=== PATIENT | male | born 1930 | race Hispanic/Latino ===

== ENCOUNTER → 2017-08-26 | Outpatient (CLI) | payer OTHER, MEDICARE ==
[~2017-08-26] MED LIST: IOPAMIDOL-370 75 ML VIAL IV ONE
== END | disposition home or self-care (01) ==
LOC: OIH 07:51
PROVIDERS: ATTEND Urology
DX: N28.1 Cyst of kidney, acquired (principal)
CPT/HCPCS: 74170; Q9967

== ENCOUNTER 2018-06-12 14:14 | Emergency (ER) | payer OTHER, MEDICARE ==
[2018-06-12] MEDS ORDERED: KETOROLAC TROMETHAMINE 15MG/ML ONE (15:05)
[2018-06-12 15:08] LABS: BASOPHILS % (AUTO) 0.6 % (0.0-5.0); EOSINOPHILS % (AUTO) 1.4 % (0.0-8.0); HEMATOCRIT 40.9 % (42-54); LYMPHOCYTES % (AUTO) 13.3 % (21.0-51.0); MEAN CORPUSCULAR HEMOGLOBIN 30.8 pg (27.0-33.0); MEAN CORPUSCULAR VOLUME 93.4 fL (79-99); MONOCYTES % (AUTO) 8.9 % (3.0-13.0); NEUTROPHILS % (AUTO) 75.8 % (40.0-77.0); PLATELET COUNT (AUTO) 148 K/uL (130-400); RED BLOOD CELL COUNT(AUTO) 4.37 MIL/uL (4.50-6.20); RED CELL DISTRIBUTION WIDTH 13.8 % (11.0-15.5); WHITE BLOOD COUNT (AUTO) 8.5 K/uL (4.8-10.8)
[2018-06-12 15:21] LABS: POTASSIUM 3.4 mmol/L (3.5-5.1)
[2018-06-12 15:22] LABS: INR 2.78 (0.85-1.15); PARTIAL THROMBOPLASTIN TIME 38.7 SEC (26.3-35.5); PROTHROMBIN TIME 28.6 SEC (9.6-11.6)
[2018-06-12 15:25] LABS: ALBUMIN 3.1 g/dL (3.5-5.0); BILIRUBIN,TOTAL 0.8 mg/dL (0.2-1.0); CRP QUANTITATIVE 18.4 mg/L (0.00-9.0); TOTAL PROTEIN, SERUM 6.4 g/dL (6.0-8.3)
== END 2018-06-12 16:31 | disposition home or self-care (01) ==
LOC: EDH 14:14
DX: M79.672 Pain in left foot (principal); M79.89 Other specified soft tissue disorders; I25.10 Atherosclerotic heart disease of native coronary artery without angina pectoris; E78.5 Hyperlipidemia, unspecified; I10 Essential (primary) hypertension; M81.0 Age-related osteoporosis without current pathological fracture; Z98.62 Peripheral vascular angioplasty status; Z79.01 Long term (current) use of anticoagulants
CPT/HCPCS: 36415; 73630; 80053; 84550; 85025; 85610; 85730; 86140; 96374; 99284; J1885

== ENCOUNTER → 2018-08-03 | Outpatient (CLI) | payer OTHER, MEDICARE | END | disposition home or self-care (01) | LOC: RAH 13:56 | PROVIDERS: ATTEND Urology | DX: N28.1 Cyst of kidney, acquired (principal) | CPT/HCPCS: 76770 ==

== ENCOUNTER → 2019-05-15 | Outpatient (CLI) | payer OTHER, MEDICARE | END | disposition home or self-care (01) | LOC: SHCH 08:07 | PROVIDERS: ATTEND Internal Medicine Cardiovascular Disease | DX: I08.1 Rheumatic disorders of both mitral and tricuspid valves (principal) | CPT/HCPCS: 93306 ==

== ENCOUNTER 2019-07-29 08:30 | Observation (INO) | payer OTHER, MEDICARE ==
[2019-07-27 08:40] VITALS: BP 90/53
[2019-07-27 08:57] LABS: BASOPHILS % (AUTO) 0.7 % (0.0-5.0); EOSINOPHILS % (AUTO) 2.5 % (0.0-8.0); HEMATOCRIT 45.1 % (42-54); LYMPHOCYTES % (AUTO) 19.9 % (21.0-51.0); MEAN CORPUSCULAR HEMOGLOBIN 30.2 pg (27.0-33.0); MEAN CORPUSCULAR HGB CONC 31.9 g/dL (32.0-36.0); MEAN CORPUSCULAR VOLUME 94.5 fL (79-99); MONOCYTES % (AUTO) 7.3 % (3.0-13.0); NEUTROPHILS % (AUTO) 69.3 % (40.0-77.0); PLATELET COUNT (AUTO) 191 K/uL (130-400); RED BLOOD CELL COUNT(AUTO) 4.77 MIL/uL (4.50-6.20); RED CELL DISTRIBUTION WIDTH 13.2 % (11.0-15.5); WHITE BLOOD COUNT (AUTO) 7.7 K/uL (4.8-10.8)
[2019-07-27 09:02] LABS: CREATININE 1.2 mg/dL (0.5-1.5)
[2019-07-27 09:11] LABS: INR 2.03 (0.85-1.15); PARTIAL THROMBOPLASTIN TIME 32.8 SEC (26.3-35.5); PROTHROMBIN TIME 20.7 SEC (9.6-11.6)
[2019-07-27 09:50] VITALS: BP 127/71
--- NOTE | 2019-07-28 14:42 | NUR ---
RE: ABNORMAL LABS INFORMED SAMANTHA ONOFRE REGARDING PT 20.7 INR 2.03 AND PTT 32.8. PATIENT TAKING WARFARIN AND WAS INSTRUCTED TO HOLD WARFARIN 3 DAYS BEFORE PROCEDURE. PER TIBURCIO ONOFRE TO PROCEED WITH PROCEDURE. RECHECK INR IN AM OF PROCEDURE.
[~2019-07-29] VITALS: Ht 160 cm; Wt 62.6 kg
[~2019-07-29 08:30] MED LIST changes: +ACET-66 PO; +ALEN35TA23 PO; +ASPI-555 PO; +CEFAZOLIN SODIUM 1 GM VIAL IVP SCH; +FINA5TAB41 PO; +FURO20TA4 PO; -IOPAMIDOL-370 75 ML VIAL IV ONE; +METO-408 PO; +SACU1TAB PO; +SIMV-46 PO; +WARF2.5T9 PO
[2019-07-29 08:40] VITALS: BP 138/81
[2019-07-29 09:21] LABS: INR 1.35 (0.85-1.15)
[2019-07-29] MEDS: SODIUM CHLORIDE 0.9% 1000ML 1,000 ML IV SCH ×2 (09:34→10:07)
[2019-07-29] MEDS ORDERED: BUPIVACAINE/PF 0.25% 30ML VIAL IJ ONE (12:01)
[2019-07-29] MEDS ORDERED: MEPERIDINE-PF 25 MG/ML SYG ONE ×2 (12:02→12:45)
[2019-07-29] MEDS ORDERED: MIDAZOLAM HCL 1 MG/ML 2ML VIAL ONE ×2 (12:02→12:45)
[2019-07-29] MEDS ORDERED: IODIXANOL 320 MG/ML 100 ML VIAL ONE (12:02)
[2019-07-29] MEDS ORDERED: CEFAZOLIN SODIUM 1 GM VIAL ONE (12:02)
[2019-07-29] MEDS ORDERED: LIDOCAINE HCL 1% MDV 50ML VIAL ONE (12:02)
[2019-07-29] MEDS ORDERED: ACETAMINOPHEN-CODEINE 300/30MG TAB PO PRN (13:45)
[2019-07-29 15:30] VITALS: BP 103/63
--- NOTE | 2019-07-29 15:30 | NUR ---
POST PROCEDURE RECEIVED PT FROM COLOR CORRECTOR IN SEMI MONTOYA'S POSITION, A&OX3, CALM COOPERATIVE AND DOES NOT APPEAR TO BE IN ANY DISTRESS NOR ANY NEURO DEFICITS PRESENT. LEFT SHOULDER DRESSING DRY AND INTACT WITH NO OOZING OR HEMATOMA PRESENT. PULSES AND ALUMINUM MOLDER STRENGTH STRONG WITH STAND BY ASSIST. CALL LIGHT WITHIN REACH, FAMILY AT BEDSIDE.
[2019-07-29] MEDS: ACETAMINOPHEN EXTRA STRENGTH 500 MG TABLET PO PRN (16:11)
[2019-07-29 19:00] VITALS: BP 93/52
[2019-07-29] MEDS ORDERED: FINASTERIDE 5 MG TABLET PO SCH (21:00)
[2019-07-29] MEDS ORDERED: WARFARIN SODIUM 2.5 MG TAB PO SCH (21:00)
[2019-07-29] MEDS ORDERED: SIMVASTATIN 20 MG TABLET PO SCH (21:00)
[2019-07-29 23:00] VITALS: BP 104/53
[2019-07-30 04:00] VITALS: BP 118/72
[2019-07-30] MEDS: ACETAMINOPHEN EXTRA STRENGTH 500 MG TABLET PO PRN (04:08)
[2019-07-30 07:49] VITALS: BP 100/55
[2019-07-30] MEDS ORDERED: METOPROLOL SUCCINATE 50 MG TAB.SR.24H PO SCH (09:00)
[2019-07-30] MEDS ORDERED: FUROSEMIDE 20 MG TABLET PO SCH (09:00)
[2019-07-30] MEDS ORDERED: ASPIRIN 81 MG EC TAB PO SCH (09:00)
--- NOTE | 2019-07-30 11:23 | NUR ---
PATIENT READY TO BE DISCHARGED HOME. GAVE PATIENT DISCHARGE EDUCATION AND INFORMATION. INFORMED PATIENT ABOUT FOLLOW UP APPOINTMENTS. REMOVED PATIENT IV. ANSWERED PATIENT QUESTIONS. GAVE PATIENT DISCHARGE PACKET.
[2019-07-30 12:10] VITALS: BP 104/60
--- NOTE | 2019-07-30 14:11 | NUR ---
CM NOTE PT DISCHARGED TO HOME AFTER OPP, PRIOR TO BEING SEEN BY CM, NO CONCERNS VOICED BY RNS Addendum: 07/30/19 at 1413 by ELAN ALEXANDRE RN CM Amended: Links added.
[2019-07-30] MEDS ORDERED: SACUBITRIL PO SCH (21:00)
[2019-07-30] MEDS ORDERED: VALSARTAN PO SCH (21:00)
[2019-07-31] MEDS ORDERED: ALENDRONATE SODIUM 35 MG TAB PO SCH (07:00)
== END 2019-07-30 12:24 | disposition home or self-care (01) ==
LOC: DAH 08:30 → DAHIP 08:31 → DAH 08:31 → 2AH 14:16
PROVIDERS: ADMIT Internal Medicine; ATTEND Internal Medicine
DX: I25.5 Ischemic cardiomyopathy (principal); I50.22 Chronic systolic (congestive) heart failure; I48.21 Permanent atrial fibrillation; I25.10 Atherosclerotic heart disease of native coronary artery without angina pectoris; I48.0 Paroxysmal atrial fibrillation; E78.5 Hyperlipidemia, unspecified; I25.2 Old myocardial infarction; Z95.5 Presence of coronary angioplasty implant and graft; Z79.82 Long term (current) use of aspirin; Z79.01 Long term (current) use of anticoagulants; Z79.899 Other long term (current) drug therapy
CPT/HCPCS: 33225; 33249; 36415 ×2; 71045; 80048; 85025; 85610 ×2; 85730; 93005; A4215; A4216; A4221; A4222; A4223 ×3; A4606; A4663; C1769; C1882; C1895; C1900; G0378 ×22; J0690; J2175 ×2; J2250 ×2; J3490 ×2; J7030 ×2; Q9967; 99156; 99157

== ENCOUNTER → 2020-10-03 | Outpatient (CLI) | payer OTHER, MEDICARE ==
[~2020-10-03] MED LIST changes: -ALEN35TA23 PO; +ALEN35TA51 PO; -ASPI-555 PO; +ASPI-556 PO; -CEFAZOLIN SODIUM 1 GM VIAL IVP SCH
== END | disposition home or self-care (01) ==
LOC: RAH 11:01
PROVIDERS: ATTEND Urology
DX: N28.1 Cyst of kidney, acquired (principal)
CPT/HCPCS: 76770